=== PATIENT | male | born 1940 | race Caucasian/White ===

== ENCOUNTER 2022-02-12 19:30 | Emergency (ER) | payer MEDICARE, BC, SELFPAY ==
[2022-02-12 19:41] VITALS: BP 167/80; PULSE 58; RESP 18; TEMP 37.3; O2SAT 95; O2SAT 98; BMI 24.4
--- NOTE | 2022-02-12 20:17 | ED.GENADULT ---
HPI - General Adult General Time Seen by Provider: 20:18 Date Seen: 02/12/22 Chief complaint: Back Injury/Pain Stated complaint: Back Pain Time Seen by Provider: 02/12/22 19:55 Source: patient History of Present Illness HPI narrative: 81-year-old male presents with 2 weeks of left low back pain. Patient reports that pain began about 2 weeks ago. He was sitting down in just leaned a little bit to his left and had sudden onset of pain in his left low back. He was able to live with her for a while but then he did the same thing yesterday in the pain is been almost unbearable. He has not had any other injury. He does report that this has happened episodically over the years. It typically gets better with some time in therapy. He has also been struggling with cervical spine problems those are better now with physical therapy. He does take Aleve twice a day and Tylenol p.r.n. and has also been started on Flexeril for this current problem. Despite taking all those medicines he is not getting adequate relief. He has not had a fever. No significant trauma. The pain does not radiate down his legs. No numbness or tingling going down his legs. No bowel or bladder incontinence. Has chronic urinary frequency for which he takes oxybutynin. He does not have weakness in his legs. He reports it is difficult for him to stand and walk because the pain is so severe. Related Data Home Medications Medication Instructions Recorded Confirmed alfuzosin 10 mg tablet,extended 10 mg PO DAILY 02/12/22 02/12/22 release 24 hr cyclobenzaprine 5 mg tablet 5 mg PO Q8H PRN 02/12/22 02/12/22 oxybutynin chloride 10 mg 10 mg PO DAILY 02/12/22 02/12/22 tablet,extended release 24 hr oxybutynin chloride 5 mg 5 mg PO DAILY 02/12/22 02/12/22 tablet,extended release 24 hr Allergies Allergy/AdvReac Type Severity Reaction Status Date / Time Penicillins Allergy Intermediate Hives Verified 02/12/22 19:44 Review of Systems Narrative: No recent illness. PFS PFS Medical History (Updated 02/12/22 @ 21:25 by Raman Boo MD) Cervical spine disease Sensorineural hearing loss Urge incontinence Surgical History (Updated 02/12/22 @ 20:24 by Raman Boo MD) History of appendectomy History of cholecystectomy History of inguinal hernia repair, bilateral Social History (Updated 02/12/22 @ 20:24 by Raman Boo MD) Narrative: He presents with his . He does not smoke. He drinks alcohol 1 per day Smoking Status: Never smoker Do you use any of these nicotine containing products: None Second hand tobacco smoke exposure: No How often do you have a drink containing alcohol: never AUDIT-C Alcohol total score: 0 Non-prescribed substance use: denies use service: No Exam Narrative: Exam Narrative: He is alert and appears in no distress. Hard of hearing. Inspection of the back shows no obvious injury, deformity, signs of infection. Moves with great difficulty from supine to sitting. Palpation over his back shows that his tenderness is in the low lumbar area down to the left SI joint. Palpation over the rest of his low back hips and pelvis is without any discomfort. Straight leg raising actively to 45? and passively to 60? on the left limited by pain. Straight leg is a raising on the right to 60? actively without significant discomfort. Strength is 5/5 in both lower extremities with some limitation due to pain. Deep tendon reflexes at the patella for over 4 and Achilles 3/4 bilaterally intact pulses and sensation distally. Const: Vital Signs, click to edit/add: Vital Signs - 24 hr 02/12/22 19:41 Temperature 99.1 F Pulse Rate [Right Pulse Oximeter] 58 L Respiratory Rate 18 Blood Pressure [Le ft Upper Arm] 167/80 H Pulse Oximetry 95 Oxygen Delivery Me thod Room Air Documenting provider has reviewed patient's vital signs: yes Course Course Hospital Course: Patient received oxycodone 5 mg and ondansetron 4 mg. With this he had marked improvement in his back pain was able to ambulate independently. Discussed imaging his back looking for pathologic conditions that might explain his pain. Today he declines any further imaging. He can discuss this with his primary care provider. Vital Signs Vital signs: Initial Vital Signs Temperature 99.1 F 02/12/22 19:41 Temperature Source Temporal Artery Scan 02/12/22 19:41 Pulse Rate 58 L 02/12/22 19:41 Respiratory Rate 18 02/12/22 19:41 Blood Pressure 167/80 H 02/12/22 19:41 Blood Pressure Mean 109 02/12/22 19:41 Blood Pressure Position Supine 09/12/22 19:41 Pulse Oximetry 95 02/12/22 19:41 Oxygen Delivery Method 02/12/22 19:41 Vital Signs Temperature 99.1 F 02/12/22 19:41 Pulse Rate 58 L 02/12/22 19:41 Respiratory Rate 18 02/12/22 19:41 Blood Pressure 167/80 H 02/12/22 19:41 Pulse Oximetry 95 02/12/22 19:41 Oxygen Delivery Method 02/12/22 19:41 Temperature 99.1 F 02/12/22 19:41 Pulse Rate 58 L 02/12/22 19:41 Respiratory Rate 18 02/12/22 19:41 Blood Pressure 167/80 H 02/12/22 19:41 Pulse Oximetry 95 02/12/22 19:41 Oxygen Delivery Method 02/12/22 19:41 Discharge Plan Discharge Clinical Impression: Back pain Patient Disposition: Home, Self-Care Additional Instructions: You may take oxycodone 5 mg 1/2-1 tablet every 4 hours as needed for pain. This may make you nauseated. If you get nauseated you may take ondansetron. This will make you constipated. Take MiraLax and or senna. Taken enough that you have a bowel movement every day. Stay as active as you can tolerate. See your doctor in the next week for recheck. Return to the emergency department if you get a fever or if you get weakness or numbness in your leg or lose control of your bowel or bladder. Activity Level: Activity as Tolerated Prescriptions: No Action alfuzosin 10 mg tablet extended release 24 hr 10 mg PO DAILY cyclobenzaprine 5 mg tablet 5 mg PO Q8H PRN oxybutynin chloride 10 mg tablet extended release 24hr 10 mg PO DAILY oxybutynin chloride 5 mg tablet extended release 24hr 5 mg PO DAILY Follow Up/Referrals: Lexy Serrano MD [Primary Care Provider] - Stand Alone Forms: [employer] Info Instructions
[2022-02-12] MEDS: ONDANSETRON ODT 4 MG TAB PO (20:26)
[2022-02-12] MEDS: OXYCODONE 1 MG/ML ORAL SOLN 5 MG PO (20:26)
--- NOTE | 2022-02-12 20:58 | PC.NURSE ---
pt states the medicine is starting to help. Eating crackers and drinking milk
--- NOTE | 2022-02-12 21:15 | PC.NURSE ---
pt up with standby by assist-ambulation slow and steady. at for evaluation.
== END 2022-02-12 22:30 | disposition home or self-care (01) ==
PROVIDERS: Emergency Provider Family Medicine; PCP Family Medicine
DX: M54.50 Low back pain, unspecified (principal)
CPT/HCPCS: 94761; 99283; A9270

== ENCOUNTER 2022-09-21 09:20 | Outpatient (CLI) | payer MEDICARE, BC, SELFPAY | END 2022-09-21 09:21 | disposition home or self-care (01) | PROVIDERS: PCP Family Medicine; Visit Provider Family Medicine | DX: M54.16 Radiculopathy, lumbar region (principal); M51.36 Other intervertebral disc degeneration, lumbar region | CPT/HCPCS: 62323; J0702; Q9966 ==

== ENCOUNTER 2024-03-22 14:24 | Outpatient (CLI) | payer MEDICARE, BC, SELFPAY | END 2024-03-22 14:25 | disposition home or self-care (01) | LOC: NFLDUCREF 14:25 | PROVIDERS: PCP Family Medicine; Visit Provider Nurse Practitioner Family | DX: A69.20 Lyme disease, unspecified (principal); M25.511 Pain in right shoulder | CPT/HCPCS: 86618 ==

== ENCOUNTER 2024-10-20 06:02 | Day surgery (SDC) | payer MEDICARE, BC, SELFPAY ==
[2024-10-20 06:33] VITALS: BMI 26.2
[2024-10-20 06:40] VITALS: BP 138/71; PULSE 53; RESP 16; TEMP 36.6; O2SAT 96
[2024-10-20] MEDS: SODIUM CHLORIDE 0.9 % (FLUSH) 10 ML SYRINGE IVF (06:58)
[2024-10-20] MEDS: LACTATED RINGERS 500 ML 500 ML 100 ML IV ×2 (07:00→09:19)
--- NOTE | 2024-10-20 07:17 | W.PM.H&PU ---
History & Physical Update History & Physical Update H&P Reviewed and patient assessed: No changes noted H&P Updates: Patient held his Eliquis for 3 days. Patient complains of enlarging right breast retroareolar tissue that continues to be painful. Excisional breast biopsy was added on to the procedure.
--- NOTE | 2024-10-20 07:20 | P.GSOP_ITS ---
Operative Note Date of procedure: 10/20/24 Pre-op diagnosis: 1. Symptomatic umbilical hernia. 2. Enlarging painful right breast mass. Post-op diagnosis: 1. Incarcerated incisional umbilical hernia containing preperitoneal fat. 2. Dense retroareolar right breast tissue. Type of Procedure: 1. Open umbilical hernia repair with mesh. 2. Excisional biopsy of the right breast retroareolar mass. Indications: 84-year-old male was seen in clinic for evaluation of umbilical hernia and painful enlarging right breast tissue. Patient states that his umbilical bulge was present for years. He was previously seen in my clinic but decided not to proceed with surgery. He noticed that the bulge was increasing in size. He desired to proceed with repair. Patient was also complaining of right breast tenderness when pressure was applied to his right nipple. The tenderness was also present with palpation. He denied nipple discharge, denied trauma. He denied family history of breast ovarian cancer. Patient underwent breast mammogram in September 2024 and that showed minimal gynecomastia bilaterally. On clinical exam there were no suspicious skin changes in bilateral breasts. The right areolar was tender to palpation and there was a glandular disklike tissue palpated just posterior to the areola. There was no nipple discharge noted. There was no evidence of inverted nipple. In the abdomen patient was noted to have a grape sized umbilical bulge at the superior aspect of the umbilicus. This was reducible. The fascial defect was approximately 5 mm. There is also well-healed laparoscopic scar at the superior aspect of the umbilicus. I discussed with the patient my clinical findings and his imaging findings. Patient was thought to have right breast symptomatic gynecomastia. We did not discuss proceeding with surgery initially. Patient was scheduled for an umbilical hernia repair. I discussed the procedure in detail with the patient. The risks associated procedure including infection, bleeding, injury to intra- abdominal organs and hernia recurrence were all discussed with the patient, and he agreed to proceed. Patient continued to have enlarging breast tissue posterior to his right nipple. Patient was worried about breast cancer and requested a biopsy of this tissue. The procedure was discussed in detail. The risks associated procedure including infection, bleeding, prolonged pain, and the need for additional procedures were all discussed with the patient, and he agreed to proceed. Procedure Description: After discussing the risks and benefits of the procedure, the patient signed informed consent.? The operative site was marked and the patient was brought to the operating room and placed on the operating table in supine position.? Care was taken to pad the patient's pressure points.?? The patient was then sedated by anesthesia.?? The operative site was then prepped and draped in the usual sterile fashion.? A time-out was then performed. We first started with excision of biopsy of the right breast mass. Local anesthetic was injected at the surgical site Genesis areolar curvilinear skin incision was made with a scalpel spanning from 9 to 1:00. Dermis and subcutaneous fat were divided with cautery. With palpating the dense retroareolar masslike tissue this was mobilized and excised from the surrounding fat and remainder of the breast tissue with cautery. The mass excised was purple in appearance and very dense. This was inked for orientation and sent to pathology. Hemostasis was achieved with cautery. The dermis was then reapproximated with interrupted 3-0 Vicryl sutures. The skin was closed with a running 4-0 Monocryl stitch. We then proceeded with repair of umbilical hernia. Local anesthetic was injected at the surgical site. A curvilinear skin incision was made with a scalpel just above the umbilicus. Subcutaneous tissue was dissected with electrocautery down to the hernia sac and anterior fascia. The hernia sac was dissected off of the anterior fascia and subcutaneous fat around the fascial defect was dissected away from the fascial defect with cautery. Preperitoneal fat was noted to be incarcerated through the hernia defect. The hernia defect was at least 12 mm. I then developed preperitoneal space for mesh insertion. This was done with cautery. Left inferiorly there were 2 metal surgical clips noted in subcutaneous fat. These were easily removed. No bleeding was seen in the surgical site. A small Ventralex ST mesh patch was then inserted into preperitoneal space and secured to the fascia using 0-0 Neurolon interrupted stitches. I examined my closure and no defects were identified between the fascia and the mesh. Fascia was re-approximated over the mesh with a running 2-0 Vicryl stitch. Additional local anesthetic was injected into subcutaneous tissues. An umbilicus was tacked down with interrupted 3-0 Vicryl stitches. Subdermal layer was closed with interrupted sutures using 3-0 Vicryl. Skin was closed with 4-0 Monocryl using subcuticular stitch. Steri strips were applied over both incisions. I then placed a folded sterile 4x4 gauze over the umbilical incision and covered it with tape. Bulky gauze dressing was placed over the right chest and secured in place with stay. All counts were correct at the end of the case. Patient tolerated the procedure well and was transferred to PACU without any complications. Findings: Retroareolar breast mass firm and dense to palpation. Removed and sent to pathology for diagnostic purposes. Umbilical hernia is an incisional hernia since patient had prior healed incision in this area. This was repaired with small mesh. Anesthesia: MAC and local Surgeon: Colin Simmons MD Estimated blood loss (mL): 5 Additional Specimen Information: 1. Right breast mass. Condition: stable Disposition: same day
--- NOTE | 2024-10-20 07:36 | P.ANES_ITS ---
Anesthesia Charges Start Date/Time Anesthesia Start Date: 10/20/24 Anesthesia Start Time: 07:26 Stop Date/Time Anesthesia Stop Date: 10/20/24 Anesthesia Stop Time: 08:55 Summary Extremes of Age - Over 70 or under 1: MDA Coding CPT Codes CPT Codes: ANESTH REPAIR OF HERNIA - 07417 ([id number]) P2 - PATIENT W/MILD SYST DISEASE, QK - MILL ROLL REWINDER 2-4 CNCRNT ANES PROC, QX - HOT METAL MIXER OPERATOR SVC W/ MD MED DIRECTION Additional Codes: Summary - Extremes of Age - Over 70 or under 1: MDA ([id number])
--- NOTE | 2024-10-20 07:36 | W.ANESCHARGE ---
Anesthesia Charges Start Date/Time Anesthesia Start Date: 10/20/24 Anesthesia Start Time: 07:26 Stop Date/Time Anesthesia Stop Date: 10/20/24 Anesthesia Stop Time: 08:55 Summary Extremes of Age - Over 70 or under 1: MDA Coding CPT Codes CPT Codes: ANESTH REPAIR OF HERNIA - 02392 ([id number]) P2 - PATIENT W/MILD SYST DISEASE, QK - BOARDING KENNEL OR CATTERY OPERATOR 2-4 CNCRNT ANES PROC, QX - PHYSICIAN SCRIBE SVC W/ MD MED DIRECTION Additional Codes: Summary - Extremes of Age - Over 70 or under 1: MDA ([id number])
[2024-10-20] MEDS: BUPIVACAINE 0.25% 30 ML 7.5 ML INJECTION (07:42)
[2024-10-20] MEDS: LIDOCAINE 1%-EPI 1:100,000 7.5 ML INFILTRATI (07:42)
--- NOTE | 2024-10-20 07:48 | SUR.OPER ---
PATIENT QUESTIONS ANSWERED SATISFACTORILY PREOPERATIVELY. PATIENT BROUGHT TO OR #1 PER CART. Patient positioned supine on OR #1 bed. The perioperative team supported arms bilaterally on arm boards. Final approval of positioning by surgeon.
[2024-10-20 08:52] VITALS: BP 118/61; PULSE 52; RESP 16; O2SAT 96
--- NOTE | 2024-10-20 08:55 | P.ANES_ITS ---
Anesthesia Charges Start Date/Time Anesthesia Start Date: 10/20/24 Anesthesia Start Time: 07:26 Stop Date/Time Anesthesia Stop Date: 10/20/24 Anesthesia Stop Time: 08:55 Coding CPT Codes CPT Codes: ANESTH REPAIR OF HERNIA - 00496 ([id number]) P2 - PATIENT W/MILD SYST DISEASE, QK - DIRECTOR OCCUPATIONAL 2-4 CNCRNT ANES PROC, QX - NUT TAPPER SVC W/ MD MED DIRECTION
--- NOTE | 2024-10-20 08:55 | W.ANESCHARGE ---
Anesthesia Charges Start Date/Time Anesthesia Start Date: 10/20/24 Anesthesia Start Time: 07:26 Stop Date/Time Anesthesia Stop Date: 10/20/24 Anesthesia Stop Time: 08:55 Coding CPT Codes CPT Codes: ANESTH REPAIR OF HERNIA - 23876 ([id number]) P2 - PATIENT W/MILD SYST DISEASE, QK - TOPOGRAPHICAL DRAFTER 2-4 CNCRNT ANES PROC, QX - MARKETING PROJECT LEAD SVC W/ MD MED DIRECTION
[2024-10-20 09:00] VITALS: BP 113/56; PULSE 52; RESP 16; TEMP 36.6; O2SAT 96
[2024-10-20 09:15] VITALS: BP 126/60; PULSE 45; RESP 16; O2SAT 96
[2024-10-20 09:30] VITALS: BP 139/59; PULSE 42; RESP 16; O2SAT 95
[2024-10-20 09:45] VITALS: BP 113/74; PULSE 45; RESP 16; O2SAT 96
[2024-10-20] MEDS: ACETAMINOPHEN 325 MG TABLET 650 MG PO (10:45)
--- NOTE | 2024-10-20 11:39 | SUR.PHASEII ---
pt did well. Minimal pain 4/10 in umbilical site. no discomfort in right breast. tolerated applesauce and Sprite. supportive and at bedside. Wheelchair out to car with RN to .
== END 2024-10-20 11:00 | disposition home or self-care (01) ==
PROVIDERS: PCP Family Medicine; Visit Provider Surgery
PROC: (CPT 49592; principal; 2024-10-20 07:30)
DX: K42.0 Umbilical hernia with obstruction, without gangrene (principal); N63.41 Unspecified lump in right breast, subareolar
CPT/HCPCS: 49592; 19120; 00750; 00752; 00830; 88307; 99100; A9270; C1781; J0665; J1100; J2405; J2704; J3010; J3490; J7120

== ENCOUNTER 2024-11-10 11:58 | Outpatient (CLI) | payer MEDICARE, BC, SELFPAY | END 2024-11-10 11:59 | disposition home or self-care (01) | PROVIDERS: PCP Family Medicine; Visit Provider Family Medicine | DX: M54.16 Radiculopathy, lumbar region (principal); M51.369 Other intervertebral disc degeneration, lumbar region without mention of lumbar back pain or lower extremity pain | CPT/HCPCS: 62323; J0702; Q9966 ==